=== PATIENT | male | born 1975 | race Caucasian/White ===

== ENCOUNTER 2018-05-22 18:47 | Emergency (ER) | payer MEDICAID ==
[~2018-05-22] VITALS: Ht 172.7 cm; Wt 95.5 kg
[2018-05-22 19:07] VITALS: BP 128/88
[2018-05-22] MEDS ORDERED: ketorolac trometh inj. 60 MG/2 ML VIAL IM ONE (21:25)
[2018-05-22] MEDS ORDERED: DICL50TA8 PO (21:26)
[2018-05-22] MEDS ORDERED: CYCL-1 PO (21:26)
== END 2018-05-22 21:51 | disposition home or self-care (01) ==
LOC: ER 18:48
DX: M54.5 Low back pain (principal); G89.29 Other chronic pain; F17.200 Nicotine dependence, unspecified, uncomplicated; Z60.2 Problems related to living alone; Z88.1 Allergy status to other antibiotic agents; Z79.899 Other long term (current) drug therapy
CPT/HCPCS: 96372; 99283; J1885

== ENCOUNTER 2021-02-08 17:43 | Emergency (ER) | payer MEDICAID ==
[~2021-02-08] VITALS: Ht 172.7 cm; Wt 100.0 kg
[~2021-02-08 17:43] MED LIST: CYCL-1 PO; DICL50TA8 PO
[2021-02-08 17:46] VITALS: BP 133/92
[2021-02-08] MEDS ORDERED: LIDOcaine 1% W/epiNEPHrine 1:200,000 10ml vial IJ ONE (17:55)
[2021-02-08] MEDS ORDERED: SULF1TAB48 PO (17:59)
[2021-02-08] MEDS ORDERED: LIDOcaine 1% W/epiNEPHrine 1:100,000 20ml vial IJ ONE (18:00)
== END 2021-02-08 18:23 | disposition home or self-care (01) ==
LOC: ER 17:44
DX: L02.412 Cutaneous abscess of left axilla (principal); L03.112 Cellulitis of left axilla; G89.29 Other chronic pain; Z88.1 Allergy status to other antibiotic agents; Z79.899 Other long term (current) drug therapy
CPT/HCPCS: 10060; 99283

== ENCOUNTER 2022-03-16 14:25 | Emergency (ER) | payer MEDICAID ==
[~2022-03-16] VITALS: Ht 170.2 cm; Wt 100.0 kg
[2022-03-16 14:46] LABS: BASOPHILS # (AUTO) 0.1 X10'3 (0-0.2); BASOPHILS % (AUTO) 0.6 % (0-1); EOSINOPHILS # (AUTO) 0.5 X10'3 (0-0.9); EOSINOPHILS % (AUTO) 4.8 % (0-6); HEMATOCRIT 46.2 % (42.0-52.0); HEMOGLOBIN 15.2 g/dl (14.0-17.9); LYMPHOCYTES # (AUTO) 3.5 X10'3 (1.1-4.8); LYMPHOCYTES % (AUTO) 31.8 % (21-51); MEAN CORPUSCULAR HEMOGLOBIN 30.8 PG (27.0-31.0); MEAN CORPUSCULAR HGB CONC 32.9 g/dL (33.0-36.5); MEAN CORPUSCULAR VOLUME 93.8 FL (78-98); MONOCYTES % (AUTO) 8.9 % (2-12); NEUTROPHILS % (AUTO) 53.9 % (42-75); PLATELET COUNT 221 X10'3 (140-440); RED BLOOD COUNT 4.93 X10'6 (4.70-6.10); RED CELL DISTRIBUTION WIDTH 13.3 % (11.5-14.5); WHITE BLOOD COUNT 11.1 X10'3 (4.5-11.0)
[2022-03-16 14:49] VITALS: BP 138/78
[2022-03-16 14:56] LABS: ALANINE AMINOTRANSFERASE 32 U/L (12-78); ALBUMIN 4.5 G/DL (3.4-5.0); ALBUMIN/GLOBULIN RATIO 1.4 (1.1-1.5); ALKALINE PHOSPHATASE 62 IU/L (46-116); ANION GAP 7 (8-16); ASPARTATE AMINO TRANSFERASE 37 U/L (10-37); BILIRUBIN,TOTAL 0.9 MG/DL (0.1-1.0); BLOOD UREA NITROGEN 15 MG/DL (7-18); BUN/CREATININE RATIO 9.2 (5.4-32.0); CALCIUM 9.7 MG/DL (8.5-10.1); CHLORIDE 104 MMOL/L (99-107); CREATININE 1.63 MG/DL (0.60-1.10); GLUCOSE 99 MG/DL (70-104); POTASSIUM 4.3 MMOL/L (3.5-5.1); SODIUM 141 MMOL/L (135-145); TOTAL CARBON DIOXIDE 30.3 MMOL/L (24-32); TOTAL PROTEIN 7.7 G/DL (6.4-8.2); eGFR 46 ML/MIN
[2022-03-16 15:04] LABS: MAGNESIUM 2.3 MG/DL (1.5-2.4)
== END 2022-03-16 22:09 | disposition left against medical advice (07) ==
LOC: ER 14:25
DX: R07.89 Other chest pain (principal); Z53.21 Procedure and treatment not carried out due to patient leaving prior to being seen by health care provider
CPT/HCPCS: 36415; 71045; 80053; 83735; 83880; 84443; 84484; 85025; 93005

== ENCOUNTER → 2022-12-31 | Emergency (ER) | payer MEDICAID ==
[~2022-12-31] VITALS: Ht 170.2 cm; Wt 95.3 kg
[~2022-12-31] MED LIST changes: +diphenhydrAMINE 50 mg/ml inj IM ONE; +methylPREDNISolone sod succ 125mg/2ml vial IM ONE
[2022-12-31 10:12] VITALS: BP 127/80; PULSE 97; TEMP 98.6; O2SAT 98
--- NOTE | 2022-12-31 10:59 | NUR ---
PT ASSESSED BY AND DISCHARGED BEFORE HAZARDOUS WASTE REMOVER, SEE MSE FROM PROVIDER TO PRESTON.
[2022-12-31 11:05] VITALS: RESP 18
--- NOTE | 2022-12-31 12:16 | NUR ---
I AGREE WITH THE ASSESSMENT PER Maryann GUERRERO LVN
== END | disposition home or self-care (01) ==
LOC: ER 10:07
DX: L50.9 Urticaria, unspecified (principal); G89.29 Other chronic pain; Z88.1 Allergy status to other antibiotic agents; Z79.899 Other long term (current) drug therapy; Z60.2 Problems related to living alone
CPT/HCPCS: 96372; 99283; J2930; 99285

== ENCOUNTER 2023-07-25 09:15 | Inpatient (IN) | payer MEDICAID ==
[~2023-07-25] VITALS: Ht 170.2 cm; Wt 81.4 kg
[~2023-07-25 09:15] MED LIST changes: -diphenhydrAMINE 50 mg/ml inj IM ONE; -methylPREDNISolone sod succ 125mg/2ml vial IM ONE
[2023-07-25] MEDS: azithromycin/NS 500mg/250ml 250 ML IV ONE (09:30)
[2023-07-25 09:53] LABS: BASOPHILS % (AUTO) 0.2 % (0-1); EOSINOPHILS # (AUTO) 0.4 X10'3 (0-0.9); EOSINOPHILS % (AUTO) 2.7 % (0-6); HEMATOCRIT 37.8 % (42.0-52.0); HEMOGLOBIN 12.8 g/dl (14.0-17.9); LYMPHOCYTES # (AUTO) 2.2 X10'3 (1.1-4.8); LYMPHOCYTES % (AUTO) 13.8 % (21-51); MEAN CORPUSCULAR HEMOGLOBIN 28.9 PG (27.0-31.0); MEAN CORPUSCULAR HGB CONC 33.9 g/dL (33.0-36.5); MEAN CORPUSCULAR VOLUME 85.1 FL (78-98); MEAN PLATELET VOLUME 7.8 FL (7.4-10.4); MONOCYTES # (AUTO) 1.1 X10'3 (0-0.9); NEUTROPHILS # (AUTO) 12.1 X10'3 (1.8-7.7); NEUTROPHILS % (AUTO) 76.3 % (42-75); PLATELET COUNT 401 X10'3 (140-440); RED BLOOD COUNT 4.44 X10'6 (4.70-6.10); RED CELL DISTRIBUTION WIDTH 13.6 % (11.5-14.5); WHITE BLOOD COUNT 15.8 X10'3 (4.5-11.0)
[2023-07-25 10:15] LABS: ALBUMIN 2.5 G/DL (3.4-5.0); CALCIUM 8.5 MG/DL (8.5-10.1); PRO BRAIN NATRIURETIC PEPTIDE 227 PG/ML (0-125); TOTAL CARBON DIOXIDE 26.9 MMOL/L (24-32)
[2023-07-25] MEDS: levoFLOXACIN-Levaquin 750MG/D5 150 ML IV ONE (10:16)
[2023-07-25] MEDS: normal saline 1000ML IV soln IV ONE (10:16)
[2023-07-25] MEDS: diphenhydrAMINE 50 mg/ml inj IV ONE (10:16)
[2023-07-25] MEDS: acetaminophen 325mg tablet PO STA (10:17)
[2023-07-25 10:31] LABS: MAGNESIUM 1.6 MG/DL (1.5-2.4)
[2023-07-25 10:46] LABS: ANION GAP 6 (8-16); BLOOD UREA NITROGEN 15 MG/DL (7-18); BUN/CREATININE RATIO 11.2 (10.0-20.0); CHLORIDE 95 MMOL/L (99-107); CREATININE 1.34 MG/DL (0.60-1.10); GLUCOSE 104 MG/DL (70-104); POTASSIUM 4.2 MMOL/L (3.5-5.1); SODIUM 128 MMOL/L (135-145); eCRCL 63 ML/MIN; eGFR 57 ML/MIN
[2023-07-25] MEDS ORDERED: ondansetron/PF 4mg/2ml inj IV PRN (13:00)
[2023-07-25] MEDS ORDERED: magnesium Cl slow-release 64mg tablet PO PRN (13:00)
[2023-07-25] MEDS ORDERED: potassium Cl 20 mEq SR tablet PO PRN (13:00)
[2023-07-25] MEDS ORDERED: methylPREDNISolone sod succ 125mg/2ml vial IV ONE (13:00)
[2023-07-25] MEDS ORDERED: potassium Cl 40MEQ/1/2NS 520ml 520 ML IV PRN (13:00)
[2023-07-25] MEDS ORDERED: magnesium 4gm in 100ml NS 100 ML IV PRN (13:00)
[2023-07-25] MEDS ORDERED: acetaminophen 650mg rectal suppository RC PRN (13:00)
[2023-07-25] MEDS ORDERED: magnesium 2GM in 50ml NS 50 ML IV PRN (13:00)
[2023-07-25] MEDS: normal saline 1000ml 1,000 ML IV SCH (13:29)
[2023-07-25] MEDS: ipratropium/albuterol 3ml nebule NEB PRN (14:09)
[2023-07-25 14:11] VITALS: PULSE 107; RESP 26; O2SAT 96
[2023-07-25 14:16] VITALS: PULSE 111; RESP 26
[2023-07-25 14:47] LABS: BILIRUBIN,URINE NEGATIVE (Neg); CLARITY,URINE CLEAR (Clear); COLOR,URINE YELLOW (Yellow); GLUCOSE, URINE NEGATIVE (Neg); KETONES,URINE NEGATIVE (Neg); LEUKOCYTE ESTERASE ,URINE NEGATIVE (Neg); NITRITES, URINE NEGATIVE (Neg); OCCULT BLOOD,URINE NEGATIVE (Neg); PROTEIN,URINE NEGATIVE (Neg)
[2023-07-25] MEDS ORDERED: ATOR40TA72 PO (14:47)
[2023-07-25] MEDS ORDERED: BICT1TAB PO (14:47)
[2023-07-25] MEDS ORDERED: LEVO200T8 PO (14:47)
[2023-07-25 14:49] LABS: UA COLLECTION TYPE NON-SPECIFIED
[2023-07-25] MEDS: acetaminophen 325mg tablet PO ONE (15:58)
[2023-07-25 20:00] VITALS: BP 122/61; PULSE 123; RESP 21; RESP 24; TEMP 99.4; O2SAT 94
[2023-07-25] MEDS: docusate sod 100mg capsule PO SCH (20:00)
[2023-07-25] MEDS: K and/or MAG REPLACEMENT MC SCH (20:00)
[2023-07-25] MEDS: heparin, porcine 5000 units/ml vial SQ SCH (20:18)
[2023-07-25 20:28] VITALS: PULSE 104; RESP 20; O2SAT 92
[2023-07-25 20:36] VITALS: PULSE 135; RESP 20
[2023-07-25 22:00] VITALS: BP 99/40; PULSE 143; RESP 22; TEMP 100.1; O2SAT 93
[2023-07-26] VITALS (8 sets, daily range): BP systolic 91–111; BP diastolic 51–66; PULSE 104–132; RESP 18–22; TEMP 98–103.3; O2SAT 89–100
[2023-07-26] MEDS: acetaminophen 325mg tablet PO PRN (05:03)
[2023-07-26 07:36] LABS: BASOPHILS % (AUTO) 0.1 % (0-1); EOSINOPHILS # (AUTO) 0.3 X10'3 (0-0.9); EOSINOPHILS % (AUTO) 2.1 % (0-6); HEMATOCRIT 35.5 % (42.0-52.0); HEMOGLOBIN 11.8 g/dl (14.0-17.9); LYMPHOCYTES # (AUTO) 1.2 X10'3 (1.1-4.8); LYMPHOCYTES % (AUTO) 8.5 % (21-51); MEAN CORPUSCULAR HEMOGLOBIN 28.4 PG (27.0-31.0); MEAN CORPUSCULAR HGB CONC 33.1 g/dL (33.0-36.5); MEAN CORPUSCULAR VOLUME 85.9 FL (78-98); MEAN PLATELET VOLUME 8.4 FL (7.4-10.4); MONOCYTES # (AUTO) 0.8 X10'3 (0-0.9); MONOCYTES % (AUTO) 5.6 % (2-12); NEUTROPHILS # (AUTO) 11.4 X10'3 (1.8-7.7); NEUTROPHILS % (AUTO) 83.7 % (42-75); PLATELET COUNT 328 X10'3 (140-440); RED BLOOD COUNT 4.14 X10'6 (4.70-6.10); RED CELL DISTRIBUTION WIDTH 13.3 % (11.5-14.5); WHITE BLOOD COUNT 13.6 X10'3 (4.5-11.0)
[2023-07-26] MEDS ORDERED: azithromycin/NS 500mg/250ml 250 ML IV SCH (08:00)
[2023-07-26 08:07] LABS: ALANINE AMINOTRANSFERASE 16 U/L (12-78); ALBUMIN 1.9 G/DL (3.4-5.0); ALBUMIN/GLOBULIN RATIO 0.5 (1.1-1.5); ALKALINE PHOSPHATASE 45 IU/L (46-116); ANION GAP 10 (8-16); ASPARTATE AMINO TRANSFERASE 32 U/L (10-37); BILIRUBIN,TOTAL 1.5 MG/DL (0.1-1.0); BLOOD UREA NITROGEN 14 MG/DL (7-18); BUN/CREATININE RATIO 10.9 (10.0-20.0); CALCIUM 8.1 MG/DL (8.5-10.1); CHLORIDE 100 MMOL/L (99-107); CREATININE 1.29 MG/DL (0.60-1.10); GLUCOSE 93 MG/DL (70-104); MAGNESIUM 1.6 MG/DL (1.5-2.4); POTASSIUM 4.8 MMOL/L (3.5-5.1); SODIUM 131 MMOL/L (135-145); TOTAL CARBON DIOXIDE 20.6 MMOL/L (24-32); TOTAL PROTEIN 6.1 G/DL (6.4-8.2); eCRCL 65 ML/MIN; eGFR 59 ML/MIN
[2023-07-26] MEDS: levoFLOXACIN-Levaquin 750MG/D5 150 ML IV SCH (08:34)
[2023-07-26] MEDS: lactobacillus rhamnosus 10,000 MMU CELLS/CAPSULE PO SCH (11:52)
[2023-07-26] MEDS: benzonatate 100mg capsule PO PRN (15:38)
[2023-07-26 16:03] LABS: % CD 4 POS. LYMPH 12.7 % (30.8-58.5); % IMMATURE GRANULOCYTES 1 % (Not Estab.); ABSOLUTE CD 4 HELPER 229 /uL (359-1519); BASOS 0 % (Not Estab.); EOS 2 % (Not Estab.); EOS (ABSOLUTE) 0.3 x10E3/uL (0.0-0.4); HEMATOCRIT 36.1 % (37.5-51.0); HEMOGLOBIN 11.3 g/dL (13.0-17.7); IMMATURE GRANULOCYTES(ABSOLUTE 0.1 x10E3/uL (0.0-0.1); LYMPHS 13 % (Not Estab.); LYMPHS (ABSOLUTE) 1.8 x10E3/uL (0.7-3.1); MCHC 31.3 g/dL (31.5-35.7); MCV 89 fL (79-97); MONOCYTES 5 % (Not Estab.); MONOCYTES (ABSOLUTE) 0.7 x10E3/uL (0.1-0.9); NEUTROPHILS 79 % (Not Estab.); NEUTROPHILS (ABSOLUTE) 10.7 x10E3/uL (1.4-7.0); PLATELETS 380 x10E3/uL (150-450); RBC 4.04 x10E6/uL (4.14-5.80); RDW 12.6 % (11.6-15.4); WBC 13.7 x10E3/uL (3.4-10.8)
[2023-07-26] MEDS: lactose-reduced food (Ensure Enlive) - 237ml bottle PO SCH (19:01)
[2023-07-26] MEDS: acetaminophen 1,000mg/100ml IV 100 ML IV ONE (19:01)
[2023-07-27] VITALS (11 sets, daily range): BP systolic 87–123; BP diastolic 55–75; PULSE 80–142; RESP 16–30; TEMP 98.2–101.9; O2SAT 91–99
[2023-07-27] MEDS ORDERED: Melatonin 3mg tablet PO SCH (02:53)
[2023-07-27] MEDS: Melatonin 3mg tablet PO PRN (03:13)
[2023-07-27] MEDS: cyclobenzaprine 10mg tablet PO PRN (03:44)
[2023-07-27 07:47] LABS: BASOPHILS % (AUTO) 0 % (0-1); EOSINOPHILS # (AUTO) 0.4 X10'3 (0-0.9); EOSINOPHILS % (AUTO) 2.6 % (0-6); HEMOGLOBIN 11.3 g/dl (14.0-17.9); LYMPHOCYTES # (AUTO) 1.1 X10'3 (1.1-4.8); LYMPHOCYTES % (AUTO) 7.8 % (21-51); MEAN CORPUSCULAR HGB CONC 33.1 g/dL (33.0-36.5); MEAN CORPUSCULAR VOLUME 84.6 FL (78-98); MEAN PLATELET VOLUME 8.8 FL (7.4-10.4); MONOCYTES # (AUTO) 0.4 X10'3 (0-0.9); MONOCYTES % (AUTO) 2.9 % (2-12); NEUTROPHILS # (AUTO) 12.1 X10'3 (1.8-7.7); NEUTROPHILS % (AUTO) 86.7 % (42-75); PLATELET COUNT 335 X10'3 (140-440); RED BLOOD COUNT 4.02 X10'6 (4.70-6.10); RED CELL DISTRIBUTION WIDTH 13.3 % (11.5-14.5); WHITE BLOOD COUNT 13.9 X10'3 (4.5-11.0)
[2023-07-27 07:54] LABS: ALANINE AMINOTRANSFERASE 20 U/L (12-78); ALBUMIN 1.8 G/DL (3.4-5.0); ALBUMIN/GLOBULIN RATIO 0.4 (1.1-1.5); ALKALINE PHOSPHATASE 39 IU/L (46-116); ANION GAP 12 (8-16); ASPARTATE AMINO TRANSFERASE 38 U/L (10-37); BILIRUBIN,TOTAL 1.3 MG/DL (0.1-1.0); BLOOD UREA NITROGEN 12 MG/DL (7-18); BUN/CREATININE RATIO 10.6 (10.0-20.0); CALCIUM 8.1 MG/DL (8.5-10.1); CHLORIDE 98 MMOL/L (99-107); CREATININE 1.13 MG/DL (0.60-1.10); GLUCOSE 124 MG/DL (70-104); MAGNESIUM 1.6 MG/DL (1.5-2.4); POTASSIUM 3.4 MMOL/L (3.5-5.1); SODIUM 129 MMOL/L (135-145); TOTAL CARBON DIOXIDE 18.9 MMOL/L (24-32); TOTAL PROTEIN 5.9 G/DL (6.4-8.2); eCRCL 75 ML/MIN; eGFR 69 ML/MIN
[2023-07-27] MEDS: fluconazole 100mg tablet PO SCH (09:12)
[2023-07-27] MEDS: potassium Cl 20 mEq SR tablet PO PRN (09:17)
[2023-07-27] MEDS: levoFLOXACIN 750MG TABLET PO SCH (11:53)
[2023-07-27 13:29] LABS: C DIFF ANTIGEN NEGATIVE (NEGATIVE); C DIFF SPECIMEN=DIARRHEA? ACCEPTABLE; C DIFFICILE TOXINS A&B NEGATIVE (Neg)
[2023-07-27] MEDS: normal saline 1000ml 1,000 ML IV ONE (18:51)
[2023-07-27] MEDS: ketorolac trometh. 30mg/ml inj. IV ONE (18:51)
[2023-07-28] VITALS (7 sets, daily range): BP systolic 100–130; BP diastolic 57–84; PULSE 92–137; RESP 16–22; TEMP 97.9–99.5; O2SAT 91–99
[2023-07-28 07:43] LABS: BASOPHILS % (AUTO) 0.2 % (0-1); EOSINOPHILS # (AUTO) 0.8 X10'3 (0-0.9); EOSINOPHILS % (AUTO) 5.1 % (0-6); HEMATOCRIT 35.7 % (42.0-52.0); HEMOGLOBIN 11.6 g/dl (14.0-17.9); LYMPHOCYTES # (AUTO) 0.8 X10'3 (1.1-4.8); LYMPHOCYTES % (AUTO) 5.1 % (21-51); MEAN CORPUSCULAR HEMOGLOBIN 28.1 PG (27.0-31.0); MEAN CORPUSCULAR HGB CONC 32.5 g/dL (33.0-36.5); MEAN CORPUSCULAR VOLUME 86.3 FL (78-98); MEAN PLATELET VOLUME 9.3 FL (7.4-10.4); MONOCYTES # (AUTO) 0.3 X10'3 (0-0.9); MONOCYTES % (AUTO) 1.9 % (2-12); NEUTROPHILS # (AUTO) 13.1 X10'3 (1.8-7.7); NEUTROPHILS % (AUTO) 87.7 % (42-75); PLATELET COUNT 324 X10'3 (140-440); RED BLOOD COUNT 4.13 X10'6 (4.70-6.10); RED CELL DISTRIBUTION WIDTH 13.9 % (11.5-14.5); WHITE BLOOD COUNT 14.9 X10'3 (4.5-11.0)
[2023-07-28 08:03] LABS: ALANINE AMINOTRANSFERASE 23 U/L (12-78); ALBUMIN 1.6 G/DL (3.4-5.0); ALBUMIN/GLOBULIN RATIO 0.4 (1.1-1.5); ALKALINE PHOSPHATASE 43 IU/L (46-116); ANION GAP 13 (8-16); ASPARTATE AMINO TRANSFERASE 43 U/L (10-37); BILIRUBIN,TOTAL 1.1 MG/DL (0.1-1.0); BLOOD UREA NITROGEN 16 MG/DL (7-18); BUN/CREATININE RATIO 15.4 (10.0-20.0); CALCIUM 8.2 MG/DL (8.5-10.1); CHLORIDE 100 MMOL/L (99-107); CREATININE 1.04 MG/DL (0.60-1.10); GLUCOSE 108 MG/DL (70-104); MAGNESIUM 1.7 MG/DL (1.5-2.4); POTASSIUM 4.1 MMOL/L (3.5-5.1); SODIUM 131 MMOL/L (135-145); TOTAL CARBON DIOXIDE 18.4 MMOL/L (24-32); TOTAL PROTEIN 5.6 G/DL (6.4-8.2); eCRCL 81 ML/MIN; eGFR 76 ML/MIN
[2023-07-28 13:44] LABS: URINE AMPHETAMINE SCREEN POSITIVE (Neg); URINE BARBITUATE SCREEN NEGATIVE (Neg); URINE BENZODIAZEPINES SCREEN NEGATIVE (Neg); URINE CANNABINOID SCREEN POSITIVE (Neg); URINE COCAINE SCREEN NEGATIVE (Neg); URINE METHADONE SCREEN NEGATIVE (Neg); URINE OPIATE SCREEN POSITIVE (Neg); URINE PHENCYCLIDINE SCREEN NEGATIVE (Neg)
[2023-07-28] MEDS: sodium bicarbonate (8.4%) inj. 50 MEQ in dextrose 5%-water 1,000 ML IV ONE (16:33)
[2023-07-29] VITALS (16 sets, daily range): BP systolic 102–139; BP diastolic 50–88; PULSE 84–145; RESP 18–44; TEMP 97.8–102.7; O2SAT 91–99
[2023-07-29 07:10] LABS: BASOPHILS % (AUTO) 0.2 % (0-1); EOSINOPHILS # (AUTO) 0.6 X10'3 (0-0.9); EOSINOPHILS % (AUTO) 4.9 % (0-6); HEMATOCRIT 32.3 % (42.0-52.0); HEMOGLOBIN 10.8 g/dl (14.0-17.9); LYMPHOCYTES # (AUTO) 1.2 X10'3 (1.1-4.8); LYMPHOCYTES % (AUTO) 9.2 % (21-51); MEAN CORPUSCULAR HGB CONC 33.3 g/dL (33.0-36.5); MEAN CORPUSCULAR VOLUME 84.1 FL (78-98); MEAN PLATELET VOLUME 8.7 FL (7.4-10.4); MONOCYTES # (AUTO) 0.2 X10'3 (0-0.9); MONOCYTES % (AUTO) 1.9 % (2-12); NEUTROPHILS # (AUTO) 10.6 X10'3 (1.8-7.7); NEUTROPHILS % (AUTO) 83.8 % (42-75); PLATELET COUNT 323 X10'3 (140-440); RED BLOOD COUNT 3.84 X10'6 (4.70-6.10); RED CELL DISTRIBUTION WIDTH 13.9 % (11.5-14.5); WHITE BLOOD COUNT 12.7 X10'3 (4.5-11.0)
[2023-07-29 07:31] LABS: ALANINE AMINOTRANSFERASE 24 U/L (12-78); ALBUMIN 1.5 G/DL (3.4-5.0); ALBUMIN/GLOBULIN RATIO 0.4 (1.1-1.5); ALKALINE PHOSPHATASE 43 IU/L (46-116); ANION GAP 10 (8-16); ASPARTATE AMINO TRANSFERASE 55 U/L (10-37); BILIRUBIN,TOTAL 1.5 MG/DL (0.1-1.0); BLOOD UREA NITROGEN 11 MG/DL (7-18); BUN/CREATININE RATIO 10.5 (10.0-20.0); CALCIUM 7.9 MG/DL (8.5-10.1); CHLORIDE 97 MMOL/L (99-107); CREATININE 1.05 MG/DL (0.60-1.10); GLUCOSE 73 MG/DL (70-104); MAGNESIUM 1.5 MG/DL (1.5-2.4); POTASSIUM 3.8 MMOL/L (3.5-5.1); SODIUM 127 MMOL/L (135-145); TOTAL CARBON DIOXIDE 20.3 MMOL/L (24-32); TOTAL PROTEIN 5.5 G/DL (6.4-8.2); eCRCL 80 ML/MIN; eGFR 75 ML/MIN
[2023-07-29] MEDS: levoTHYROXINE 100mcg tablet PO SCH (08:17)
[2023-07-29] MEDS: atorvastatin 20mg tablet PO SCH (08:18)
[2023-07-29] MEDS ORDERED: iohexol 350MG/ML 100ml bottle IV ONE (12:07)
[2023-07-29] MEDS: MULTIVIT-MIN/FERROUS GLUCONATE 9 MG/15 ML LIQUID PO SCH (13:35)
[2023-07-29 13:39] LABS: ABG BASE EXCESS -5.6 mmol/L (-2.0-2.0); ABG HCO3 16.7 mmol/L (22.0-26.0); ABG OXYGEN SATURATION 93.8 % (94-97); ABG PCO2 (T) 25.6 mmHg (35.0-48.0); ABG PH (T) 7.437 (7.340-7.440); ABG PO2 (T) 75.2 mmHg (75.0-100.0); ALLEN'S TEST POSITIVE; FCOHb 0.4 % (0.0-3.9); FHHb 6.2 % (0.0-5.0); FMetHb 0.3 % (0.0-1.5); FO2Hb 93.1 % (94-97); MODE NASAL CANNULA; PATIENT TEMPERATURE 38.7; TOTAL HEMOGLOBIN 11.2 G/dl (14.0-17.9)
[2023-07-29] MEDS: methylPREDNISolone sod succ 125mg/2ml vial IV ONE ×2 (13:56→14:10)
[2023-07-29 14:17] LABS: THYROID STIMULATING HORMONE 5.17 ulU/ml (0.34-4.50)
[2023-07-29] MEDS ORDERED: PRIMAQUINE PHOSPHATE 26.3 MG PO SCH (15:19)
[2023-07-29] MEDS ORDERED: methylPREDNISolone sod succ 125mg/2ml vial IV SCH (16:00)
[2023-07-29] MEDS: CLINDAMYCIN 600mg IN NS 50ML 50 ML IV SCH (19:52)
[2023-07-30] VITALS (28 sets, daily range): BP systolic 98–136; BP diastolic 46–81; PULSE 79–109; RESP 16–42; O2SAT 92–99
[2023-07-30] MEDS: clindamycin 600mg/D5W 50ml 50 ML IV SCH (02:25)
[2023-07-30 06:27] LABS: BASOPHILS % (AUTO) 0.2 % (0-1); EOSINOPHILS # (AUTO) 0.1 X10'3 (0-0.9); HEMATOCRIT 31.9 % (42.0-52.0); HEMOGLOBIN 10.4 g/dl (14.0-17.9); LYMPHOCYTES # (AUTO) 0.9 X10'3 (1.1-4.8); LYMPHOCYTES % (AUTO) 7.7 % (21-51); MEAN CORPUSCULAR HEMOGLOBIN 27.7 PG (27.0-31.0); MEAN CORPUSCULAR HGB CONC 32.7 g/dL (33.0-36.5); MEAN CORPUSCULAR VOLUME 84.8 FL (78-98); MEAN PLATELET VOLUME 9.5 FL (7.4-10.4); MONOCYTES # (AUTO) 0.3 X10'3 (0-0.9); MONOCYTES % (AUTO) 2.6 % (2-12); NEUTROPHILS # (AUTO) 9.9 X10'3 (1.8-7.7); NEUTROPHILS % (AUTO) 88.5 % (42-75); PLATELET COUNT 303 X10'3 (140-440); RED BLOOD COUNT 3.76 X10'6 (4.70-6.10); RED CELL DISTRIBUTION WIDTH 14.1 % (11.5-14.5); WHITE BLOOD COUNT 11.2 X10'3 (4.5-11.0)
[2023-07-30 06:31] LABS: ALANINE AMINOTRANSFERASE 25 U/L (12-78); ALBUMIN 1.4 G/DL (3.4-5.0); ALBUMIN/GLOBULIN RATIO 0.3 (1.1-1.5); ALKALINE PHOSPHATASE 45 IU/L (46-116); ANION GAP 10 (8-16); ASPARTATE AMINO TRANSFERASE 48 U/L (10-37); BILIRUBIN,TOTAL 0.9 MG/DL (0.1-1.0); BLOOD UREA NITROGEN 12 MG/DL (7-18); CALCIUM 8.5 MG/DL (8.5-10.1); CHLORIDE 103 MMOL/L (99-107); GLUCOSE 133 MG/DL (70-104); POTASSIUM 3.7 MMOL/L (3.5-5.1); SODIUM 136 MMOL/L (135-145); TOTAL CARBON DIOXIDE 23.3 MMOL/L (24-32); TOTAL PROTEIN 5.5 G/DL (6.4-8.2); eCRCL 106 ML/MIN; eGFR > 90 ML/MIN
[2023-07-30] MEDS: methylPREDNISolone sod succ 125mg/2ml vial IV SCH (09:07)
[2023-07-30] MEDS: PRIMAQUINE PHOSPHATE 26.3 MG PO SCH (10:13)
[2023-07-30] MEDS: heparin, porcine 5000 units/ml vial SQ SCH (16:40)
[2023-07-31] VITALS (21 sets, daily range): BP systolic 107–135; BP diastolic 57–78; PULSE 75–101; RESP 17–31; TEMP 97.6–98.2; O2SAT 89–99
[2023-07-31 15:54] LABS: BASOPHILS % (AUTO) 0.1 % (0-1); EOSINOPHILS % (AUTO) 0.3 % (0-6); HEMATOCRIT 30.4 % (42.0-52.0); HEMOGLOBIN 10.1 g/dl (14.0-17.9); LYMPHOCYTES # (AUTO) 0.7 X10'3 (1.1-4.8); LYMPHOCYTES % (AUTO) 4.8 % (21-51); MEAN CORPUSCULAR HEMOGLOBIN 28.2 PG (27.0-31.0); MEAN CORPUSCULAR HGB CONC 33.4 g/dL (33.0-36.5); MEAN CORPUSCULAR VOLUME 84.4 FL (78-98); MEAN PLATELET VOLUME 8.8 FL (7.4-10.4); MONOCYTES # (AUTO) 0.4 X10'3 (0-0.9); NEUTROPHILS # (AUTO) 12.8 X10'3 (1.8-7.7); NEUTROPHILS % (AUTO) 91.8 % (42-75); PLATELET COUNT 339 X10'3 (140-440); RED CELL DISTRIBUTION WIDTH 13.8 % (11.5-14.5); WHITE BLOOD COUNT 13.9 X10'3 (4.5-11.0)
[2023-07-31 16:04] LABS: ALANINE AMINOTRANSFERASE 116 U/L (12-78); ALBUMIN 1.4 G/DL (3.4-5.0); ALBUMIN/GLOBULIN RATIO 0.3 (1.1-1.5); ALKALINE PHOSPHATASE 55 IU/L (46-116); ANION GAP 8 (8-16); ASPARTATE AMINO TRANSFERASE 142 U/L (10-37); BILIRUBIN,TOTAL 0.4 MG/DL (0.1-1.0); BLOOD UREA NITROGEN 20 MG/DL (7-18); BUN/CREATININE RATIO 21.1 (10.0-20.0); CALCIUM 8.7 MG/DL (8.5-10.1); CHLORIDE 103 MMOL/L (99-107); CREATININE 0.95 MG/DL (0.60-1.10); GLUCOSE 183 MG/DL (70-104); POTASSIUM 3.7 MMOL/L (3.5-5.1); SODIUM 137 MMOL/L (135-145); TOTAL CARBON DIOXIDE 25.8 MMOL/L (24-32); TOTAL PROTEIN 5.7 G/DL (6.4-8.2); eCRCL 89 ML/MIN; eGFR 85 ML/MIN
[2023-08-01] VITALS (10 sets, daily range): BP systolic 98–119; BP diastolic 49–75; PULSE 63–82; RESP 14–21; TEMP 96.9–98.2; O2SAT 89–95
[2023-08-01] MEDS: mag hydrox/Alum hydrox/simeth 30ml oral suspension PO PRN (00:58)
[2023-08-01 08:34] LABS: BASOPHILS % (AUTO) 0.2 % (0-1); EOSINOPHILS % (AUTO) 0.1 % (0-6); HEMATOCRIT 31.2 % (42.0-52.0); HEMOGLOBIN 10.3 g/dl (14.0-17.9); LYMPHOCYTES # (AUTO) 0.8 X10'3 (1.1-4.8); LYMPHOCYTES % (AUTO) 5.3 % (21-51); MEAN CORPUSCULAR HGB CONC 32.9 g/dL (33.0-36.5); MEAN CORPUSCULAR VOLUME 85.2 FL (78-98); MEAN PLATELET VOLUME 8.8 FL (7.4-10.4); MONOCYTES # (AUTO) 0.7 X10'3 (0-0.9); MONOCYTES % (AUTO) 4.8 % (2-12); NEUTROPHILS # (AUTO) 12.6 X10'3 (1.8-7.7); NEUTROPHILS % (AUTO) 89.6 % (42-75); PLATELET COUNT 371 X10'3 (140-440); RED BLOOD COUNT 3.67 X10'6 (4.70-6.10); RED CELL DISTRIBUTION WIDTH 14.1 % (11.5-14.5); WHITE BLOOD COUNT 14.1 X10'3 (4.5-11.0)
[2023-08-01 08:49] LABS: ALANINE AMINOTRANSFERASE 122 U/L (12-78); ALBUMIN 1.4 G/DL (3.4-5.0); ALBUMIN/GLOBULIN RATIO 0.4 (1.1-1.5); ALKALINE PHOSPHATASE 58 IU/L (46-116); ANION GAP 7 (8-16); ASPARTATE AMINO TRANSFERASE 89 U/L (10-37); BILIRUBIN,TOTAL 0.6 MG/DL (0.1-1.0); BLOOD UREA NITROGEN 22 MG/DL (7-18); BUN/CREATININE RATIO 23.9 (10.0-20.0); CALCIUM 8.1 MG/DL (8.5-10.1); CHLORIDE 106 MMOL/L (99-107); CREATININE 0.92 MG/DL (0.60-1.10); GLUCOSE 149 MG/DL (70-104); POTASSIUM 4.2 MMOL/L (3.5-5.1); SODIUM 139 MMOL/L (135-145); TOTAL CARBON DIOXIDE 25.8 MMOL/L (24-32); TOTAL PROTEIN 5.4 G/DL (6.4-8.2); eCRCL 92 ML/MIN; eGFR 88 ML/MIN
[2023-08-01] MEDS: pantoprazole 40mg Tablet.DR PO SCH (08:53)
[2023-08-01] MEDS ORDERED: [UNRECOGNIZED DRUG - CODE] CORPAK (13:13)
[2023-08-01] MEDS ORDERED: FLUC100T40 PO (13:13)
[2023-08-01] MEDS ORDERED: MULT9LIQ7 PO (13:13)
[2023-08-02] VITALS (8 sets, daily range): BP systolic 108–126; BP diastolic 62–79; PULSE 64–99; RESP 13–24; TEMP 97–98.3; O2SAT 90–95
[2023-08-02 08:03] LABS: BASOPHILS % (AUTO) 0.2 % (0-1); EOSINOPHILS % (AUTO) 0.1 % (0-6); HEMATOCRIT 33.7 % (42.0-52.0); HEMOGLOBIN 11.2 g/dl (14.0-17.9); LYMPHOCYTES % (AUTO) 5.2 % (21-51); MEAN CORPUSCULAR HEMOGLOBIN 28.3 PG (27.0-31.0); MEAN CORPUSCULAR HGB CONC 33.1 g/dL (33.0-36.5); MEAN CORPUSCULAR VOLUME 85.5 FL (78-98); MEAN PLATELET VOLUME 8.7 FL (7.4-10.4); MONOCYTES # (AUTO) 1.2 X10'3 (0-0.9); MONOCYTES % (AUTO) 6.3 % (2-12); NEUTROPHILS # (AUTO) 16.4 X10'3 (1.8-7.7); NEUTROPHILS % (AUTO) 88.2 % (42-75); PLATELET COUNT 397 X10'3 (140-440); RED BLOOD COUNT 3.95 X10'6 (4.70-6.10); RED CELL DISTRIBUTION WIDTH 13.9 % (11.5-14.5); WHITE BLOOD COUNT 18.5 X10'3 (4.5-11.0)
[2023-08-02 08:38] LABS: ALANINE AMINOTRANSFERASE 100 U/L (12-78); ALBUMIN 1.5 G/DL (3.4-5.0); ALBUMIN/GLOBULIN RATIO 0.4 (1.1-1.5); ALKALINE PHOSPHATASE 52 IU/L (46-116); ANION GAP 9 (8-16); ASPARTATE AMINO TRANSFERASE 45 U/L (10-37); BILIRUBIN,TOTAL 0.6 MG/DL (0.1-1.0); BLOOD UREA NITROGEN 20 MG/DL (7-18); BUN/CREATININE RATIO 22.7 (10.0-20.0); CALCIUM 8.4 MG/DL (8.5-10.1); CHLORIDE 105 MMOL/L (99-107); CREATININE 0.88 MG/DL (0.60-1.10); GLUCOSE 154 MG/DL (70-104); POTASSIUM 4.6 MMOL/L (3.5-5.1); SODIUM 138 MMOL/L (135-145); TOTAL CARBON DIOXIDE 24.2 MMOL/L (24-32); TOTAL PROTEIN 5.5 G/DL (6.4-8.2); eCRCL 96 ML/MIN; eGFR > 90 ML/MIN
[2023-08-02 08:47] LABS: PLATELET ESTIMATE NORMAL; SMUDGE CELLS 1+; TOTAL CELLS COUNTED 100
[2023-08-03 06:21] LABS: BASOPHILS # (AUTO) 0.1 X10'3 (0-0.2); BASOPHILS % (AUTO) 0.3 % (0-1); EOSINOPHILS % (AUTO) 0.1 % (0-6); HEMATOCRIT 35.6 % (42.0-52.0); HEMOGLOBIN 11.6 g/dl (14.0-17.9); LYMPHOCYTES # (AUTO) 1.1 X10'3 (1.1-4.8); LYMPHOCYTES % (AUTO) 4.9 % (21-51); MEAN CORPUSCULAR HEMOGLOBIN 27.8 PG (27.0-31.0); MEAN CORPUSCULAR HGB CONC 32.6 g/dL (33.0-36.5); MEAN CORPUSCULAR VOLUME 85.5 FL (78-98); MEAN PLATELET VOLUME 8.4 FL (7.4-10.4); MONOCYTES # (AUTO) 1.1 X10'3 (0-0.9); MONOCYTES % (AUTO) 5.1 % (2-12); NEUTROPHILS # (AUTO) 19.6 X10'3 (1.8-7.7); NEUTROPHILS % (AUTO) 89.6 % (42-75); PLATELET COUNT 431 X10'3 (140-440); RED BLOOD COUNT 4.17 X10'6 (4.70-6.10); RED CELL DISTRIBUTION WIDTH 14.1 % (11.5-14.5); WHITE BLOOD COUNT 21.9 X10'3 (4.5-11.0)
[2023-08-03 06:38] LABS: ALANINE AMINOTRANSFERASE 89 U/L (12-78); ALBUMIN 1.7 G/DL (3.4-5.0); ALBUMIN/GLOBULIN RATIO 0.4 (1.1-1.5); ALKALINE PHOSPHATASE 55 IU/L (46-116); ANION GAP 7 (8-16); ASPARTATE AMINO TRANSFERASE 29 U/L (10-37); BILIRUBIN,TOTAL 0.8 MG/DL (0.1-1.0); BLOOD UREA NITROGEN 24 MG/DL (7-18); BUN/CREATININE RATIO 26.1 (10.0-20.0); CALCIUM 8.5 MG/DL (8.5-10.1); CHLORIDE 104 MMOL/L (99-107); CREATININE 0.92 MG/DL (0.60-1.10); GLUCOSE 214 MG/DL (70-104); POTASSIUM 4.6 MMOL/L (3.5-5.1); SODIUM 137 MMOL/L (135-145); TOTAL CARBON DIOXIDE 25.8 MMOL/L (24-32); TOTAL PROTEIN 5.8 G/DL (6.4-8.2); eCRCL 92 ML/MIN; eGFR 88 ML/MIN
[2023-08-03 06:45] LABS: ELLIPTOCYTES FEW; LARGE PLATELETS FEW; PLATELET ESTIMATE NORMAL; SMUDGE CELLS 1+; TOTAL CELLS COUNTED 100
[2023-08-03 06:46] LABS: POLYCHROMASIA FEW; SCHISTOCYTES FEW
[2023-08-03 06:47] LABS: STOMATOCYTES FEW
[2023-08-03 07:00] VITALS: BP 120/81; PULSE 78; RESP 22; TEMP 97.3; O2SAT 92
[2023-08-03 08:20] VITALS: PULSE 90; RESP 16; O2SAT 90
[2023-08-03 12:00] VITALS: BP 123/72; PULSE 90; RESP 20; TEMP 97.9; O2SAT 92
[2023-08-03] MEDS ORDERED: CLIN-15 PO (12:22)
[2023-08-03] MEDS ORDERED: PRED10TA23 PO (12:22)
== END 2023-08-03 14:27 | disposition home or self-care (01) | DRG 890 ==
LOC: ER 09:15 → ED HOLD 13:09 → ORTHO 4S 19:54 → CICU 2S 07-29 17:00 → PCU 3S 07-31 15:25 → UNDODISIN 07-31 15:30
PROVIDERS: ADMIT Family Medicine; ATTEND Family Medicine
PROC: B32T1ZZ Computerized Tomography (CT Scan) of Left Pulmonary Artery using Low Osmolar Contrast (ICD-10-PCS; principal; 2023-07-29)
PROC: B3201ZZ Computerized Tomography (CT Scan) of Thoracic Aorta using Low Osmolar Contrast (ICD-10-PCS; 2023-07-29)
PROC: B32S1ZZ Computerized Tomography (CT Scan) of Right Pulmonary Artery using Low Osmolar Contrast (ICD-10-PCS; 2023-07-29)
DX: A41.9 Sepsis, unspecified organism (principal); B20 Human immunodeficiency virus [HIV] disease; J96.01 Acute respiratory failure with hypoxia; N17.0 Acute kidney failure with tubular necrosis; J18.9 Pneumonia, unspecified organism; E46 Unspecified protein-calorie malnutrition; E87.1 Hypo-osmolality and hyponatremia; E87.8 Other disorders of electrolyte and fluid balance, not elsewhere classified; F19.10 Other psychoactive substance abuse, uncomplicated; Z20.822 Contact with and (suspected) exposure to COVID-19; G89.29 Other chronic pain; K21.9 Gastro-esophageal reflux disease without esophagitis; E88.09 Other disorders of plasma-protein metabolism, not elsewhere classified; D64.9 Anemia, unspecified; M54.9 Dorsalgia, unspecified; E03.9 Hypothyroidism, unspecified; E78.5 Hyperlipidemia, unspecified; Z68.28 Body mass index [BMI] 28.0-28.9, adult; Z88.1 Allergy status to other antibiotic agents; Z79.899 Other long term (current) drug therapy
CPT/HCPCS: 36415; 36600; 70450; 70470; 70551; 71045; 71275; 80048; 80053; 80305; 81003; 82803; 82948; 83605; 83735; 83880; 84145; 84443; 85007; 85018; 85025; 86361; 86777; 87040; 87070; 87081; 87324; 87449; 87502; 87503; 87811; 93005; 94640; 94760; 99285; A4353; A4615; A6258; G0378; J0131; J0456; J1200; J1644; J1885; J1956; J2919; J3490; J7030; J7040; J7070; Q9967

== ENCOUNTER 2024-05-10 06:52 | Emergency (ER) | payer MEDICAID ==
[~2024-05-10] VITALS: Ht 172.7 cm; Wt 78.8 kg
[~2024-05-10 06:52] MED LIST changes: +ATOR40TA72 PO; +BICT1TAB PO; -CYCL-1 PO; -DICL50TA8 PO; +LEVO200T8 PO; +MULT9LIQ7 PO
[2024-05-10 06:55] VITALS: BP 123/82; PULSE 103; RESP 17; O2SAT 98
[2024-05-10 07:52] LABS: BASOPHILS # (AUTO) 0.1 X10'3 (0-0.2); BASOPHILS % (AUTO) 0.6 % (0-1); EOSINOPHILS # (AUTO) 0.4 X10'3 (0-0.9); EOSINOPHILS % (AUTO) 3.5 % (0-6); HEMATOCRIT 38.5 % (42.0-52.0); HEMOGLOBIN 12.6 g/dl (14.0-17.9); LYMPHOCYTES # (AUTO) 2.3 X10'3 (1.1-4.8); LYMPHOCYTES % (AUTO) 18.5 % (21-51); MEAN CORPUSCULAR HEMOGLOBIN 29.3 PG (27.0-31.0); MEAN CORPUSCULAR HGB CONC 32.7 g/dL (33.0-36.5); MEAN CORPUSCULAR VOLUME 89.5 FL (78-98); MONOCYTES % (AUTO) 8.1 % (2-12); NEUTROPHILS # (AUTO) 8.5 X10'3 (1.8-7.7); NEUTROPHILS % (AUTO) 69.3 % (42-75); PLATELET COUNT 391 X10'3 (140-440); WHITE BLOOD COUNT 12.2 X10'3 (4.5-11.0)
[2024-05-10 07:58] LABS: BILIRUBIN,URINE MODERATE (Neg); CLARITY,URINE CLEAR (Clear); COLOR,URINE YELLOW (Yellow); GLUCOSE, URINE NEGATIVE (Neg); KETONES,URINE NEGATIVE (Neg); LEUKOCYTE ESTERASE ,URINE NEGATIVE (Neg); NITRITES, URINE NEGATIVE (Neg); OCCULT BLOOD,URINE NEGATIVE (Neg); PROTEIN,URINE TRACE mg/dl (Neg); UA COLLECTION TYPE VOIDED
[2024-05-10 08:11] LABS: URINE AMPHETAMINE SCREEN POSITIVE (Neg); URINE BARBITUATE SCREEN NEGATIVE (Neg); URINE BENZODIAZEPINES SCREEN NEGATIVE (Neg); URINE CANNABINOID SCREEN POSITIVE (Neg); URINE COCAINE SCREEN NEGATIVE (Neg); URINE METHADONE SCREEN NEGATIVE (Neg); URINE OPIATE SCREEN NEGATIVE (Neg); URINE PHENCYCLIDINE SCREEN NEGATIVE (Neg)
[2024-05-10 08:12] LABS: STREP A SCREEN NEGATIVE (Neg)
[2024-05-10 08:23] LABS: ALANINE AMINOTRANSFERASE 249 U/L (12-78); ALBUMIN 2.4 G/DL (3.4-5.0); ALBUMIN/GLOBULIN RATIO 0.4 (1.1-1.5); ANION GAP 6 (8-16); ASPARTATE AMINO TRANSFERASE 197 U/L (10-37); BLOOD UREA NITROGEN 11 MG/DL (7-18); BUN/CREATININE RATIO 7.6 (10.0-20.0); CALCIUM 8.5 MG/DL (8.5-10.1); CHLORIDE 100 MMOL/L (99-107); CREATININE 1.44 MG/DL (0.60-1.10); GLUCOSE 97 MG/DL (70-104); POTASSIUM 3.7 MMOL/L (3.5-5.1); SODIUM 132 MMOL/L (135-145); TOTAL CARBON DIOXIDE 26.3 MMOL/L (24-32); TOTAL PROTEIN 8.6 G/DL (6.4-8.2); eCRCL 60 ML/MIN; eGFR 52 ML/MIN
[2024-05-10 08:35] LABS: BACTERIA,URINE NONE SEEN /HPF (Neg); MUCUS STRANDS NONE SEEN /LPF (Neg); RBC,URINE NONE SEEN /HPF (0-2); SQUAMOUS EPITHELIAL CELL,UR NONE SEEN /LPF (FEW); WBC,URINE 0-4 /HPF (0-4)
[2024-05-10 08:36] LABS: ALKALINE PHOSPHATASE 1364 IU/L (46-116)
[2024-05-10 09:40] VITALS: TEMP 98
== END 2024-05-10 09:41 | disposition home or self-care (01) ==
LOC: ER 06:53
DX: J02.9 Acute pharyngitis, unspecified (principal); R21 Rash and other nonspecific skin eruption; F15.10 Other stimulant abuse, uncomplicated; G89.29 Other chronic pain; M54.9 Dorsalgia, unspecified; Z88.8 Allergy status to other drugs, medicaments and biological substances; Z79.899 Other long term (current) drug therapy; Z60.2 Problems related to living alone
CPT/HCPCS: 71046; 80048; 80053; 80305; 81001; 83605; 83735; 85025; 87081; 87880; 99284

== ENCOUNTER 2024-06-07 08:34 | Outpatient (CLI) | payer MEDICAID ==
--- NOTE | 2024-06-07 11:58 | RADIOLOGY REPORT ---
INDICATION: ABNORMAL LEVELS OF OTHER SERUM ENZYMES TECHNIQUE: Multiple real-time sonographic images of the abdomen were obtained. COMPARISON: None FINDINGS: The liver is homogenous in echogenicity. The liver measures 16.6 cm. No intrahepatic bilia ry ductal dilatation is noted. The gallbladder wall measures 0.2 cm and is unremarkable. No gallstones or sludge is seen. The com mon duct measures 0.4 cm and is unremarkable. No pericholecystic fluid is noted. Negative sonographi c munson's sign. The pancreas is not well visualized due to obscuration from bowel gas. The visualized portions of the IVC and aorta are grossly unremarkable. IMPRESSION: 1. Normal right upper quadrant ultrasound.
== END 2024-06-07 23:59 | disposition home or self-care (01) ==
LOC: RAD 08:34
PROVIDERS: ATTEND Internal Medicine Infectious Disease
DX: R74.8 Abnormal levels of other serum enzymes (principal)
CPT/HCPCS: 76700

== ENCOUNTER 2024-11-24 10:21 | Emergency (ER) | payer MEDICAID, MEDICARE ==
[~2024-11-24] VITALS: Ht 172.7 cm; Wt 92.2 kg
[2024-11-24 10:46] VITALS: BP 109/77; PULSE 109; RESP 16; TEMP 98.3; O2SAT 97
[2024-11-24] MEDS ORDERED: CEPH-585 PO (11:55)
[2024-11-24] MEDS ORDERED: SULF1TAB49 PO (11:55)
--- NOTE | 2024-11-24 11:55 | Physician Documentation ---
History of Present Illness ~ Chief Complaint: Abscess Stated Complaint: ABSCESS Time Seen by MD: 11:02 OK to notify your PCP?: Yes Primary Medical Doctor: CARL AT [facility]. PLACED ON REVERSE ISO AT THIS TIME Source: patient Mode of Arrival: POV Exam Limitations: no limitations HPI 48-year-old male presents with draining abscess to the inner portion of his right butt cheek. He reports that he felt a lump which he thought was a pimple and so he scratched it 2 days ago and now he has an abscess that has been draining. He reports having some swelling down into his scrotum. He has not taken any medication for the pain prior to arrival. He reports he lives in daily pain and would prefer not to take anything at this time. History of multiple staph infections, unsure if it was MRSA. Denies any fevers, chills, nausea, vomiting or diarrhea. Tetanus Within 5 Years: Yes Medication Reconciliation Allergies: Coded Allergies: baclofen (Verified Allergy, Unknown, 11/24/24) Scheduled Atorvastatin Calcium (Atorvastatin Calcium), 1 TAB PO DAILY, (Reported) Bictegrav/Emtricit/Tenofov Ala (Biktarvy 50-200-25 mg Tablet), 1 TAB PO DAILY, (Reported) Cephalexin*Monohydrate* (Keflex*), 1 CAP PO Q12H Levothyroxine Sodium (Levothyroxine Sodium), 1 TAB PO DAILY, (Reported) Multivits W-Min/Ferrous Gluc (Centrum Multivit-Mineral Liq), 15 ML PO DAILY Sulfamethoxazole/Trimethoprim (Bactrim Ds Tablet), 1 TAB PO Q12H Past Medical History Past Medical History: Chronic Back Pain Past Surgical History: noncontributory Patient History: Patient reports no known family medical history. Drug Use: none Lives with: Alone Lives In: Home Review of Systems All Other Systems at this time: Reviewed and Negative Physical Exam Vital Signs: RN Vital Signs have been reviewed: Yes, Temperature: 98.3, Source: Temporal, Heart Rate: 109, Respiratory Rate: 16, BP: 109/77, Pulse Oximetry: 97, Weight: 92.200 Oxygen Flow Rate: 0 Pulse Oximetry Reflects: adequate oxygenation Physical Exam General: Alert, no distress. HEENT: No injection, moist mucous membranes. Neck: Full range of motion. Respiratory: No respiratory distress, equal chest rise and fall. Chest: No accessory muscle use. Cardiovascular: Regular rate and rhythm. Gastrointestinal: Nondistended. Extremities: Normal range of motion, no deformity. Neurologic: Oriented x4. Psychiatric: Normal mood and affect. Skin: Abscess to inner portion of right butt cheek. Induration of the tissue but no fluctuance. Erythema surrounding the area which extends down into the right scrotum. Actively draining a purulent discharge. Progress Results/Orders Reviewed/noted all lab results: Yes Results/Orders Vital Signs 11/24/24 10:46 Temp 98.3 Pulse 109 Resp 16 B/P (MAP) 109/77 Pulse Ox 97 O2 Flow Rate 0 Medical Decision Making Additional information obtaine: old records Findings Physical exam reveals a draining abscess to the inner portion of his right butt cheek. There is some erythema and induration of the tissue surrounding which does extend into the right side of the scrotum. He denies any scrotal pain. I do not feel any fluctuance of the tissue in there is active purulent drainage at the site, therefore an incision and drainage was not indicated. Discussed home instructions were as follow up instructions. I have prescribed him Keflex and Bactrim due to his history of multiple staph infections in unclear etiology whether it was MRSA or not. Last strep infection was last year.. Tachycardic in triage but is afebrile. Denies any systematic symptoms. Differential Dx:Considerations: Include: Bacteremia, Cellulitis, Erysipelas, Gas gangrene, Impetigo, Septicemia Departure Disposition: HOME / SELF CARE / HOMELESS Impression: Primary Impression: Abscess Condition: Stable Discharge Instructions: Abscess, Care After Additional Instructions: You need to do warm compresses to allow for additional drainage from the abscess. Keep wound clean dry otherwise. Take all antibiotics as prescribed and finish the course. Use Tylenol and/or ibuprofen for pain relief. Follow up with your primary care provider in the next week for a wound check. Return back here for any new or worsening symptoms. Referrals: NO PRIMARY CARE PROVIDER (PCP) Prescriptions Sulfamethoxazole/Trimethoprim (Bactrim Ds Tablet) 800 Mg-160 Mg Tablet 1 TAB PO Q12H for 10 Days, #20 TAB Prov: EBONY KEVIN [employer] DEVELOPER 11/24/24 Cephalexin*Monohydrate* (Keflex*) 500 Mg Capsule 1 CAP PO Q12H for 10 Days, #20 CAP Prov: EBONY KEVIN 11/24/24 Education Educated: Patient Educated regarding: diagnosis, treatment, prognosis, need for follow up Additional Comment Medical Screen Exam This patient recieved a medical screening examination. After reviewing the individual's medical complaints with presenting symptoms and performing an appropriate physical examination, it was determined that no immediate life- threatening emergency medical condition is present. This individual is also not a women having contractions. Signature Scribe Signature: . Attestation: Scribed for Ebony Kevin by Ebony Ralph NP . 11/24/24 11:57 Parts of this note were created using [employer] voice recognition software program. While efforts were made to correct any mistakes made by this voice recognition software program, nonsensical phrases may remain in this note. In addition, there may be errors and syntax, grammar, content and spelling. EBONY KEVIN Nov 24, 2024 11:55
== END 2024-11-24 12:06 | disposition home or self-care (01) ==
LOC: ER 10:22
DX: L02.31 Cutaneous abscess of buttock (principal); G89.29 Other chronic pain; Z86.19 Personal history of other infectious and parasitic diseases; Z88.8 Allergy status to other drugs, medicaments and biological substances; Z79.899 Other long term (current) drug therapy; Z60.2 Problems related to living alone
CPT/HCPCS: 99283